=== PATIENT | female | born 1990 | race Caucasian/White ===

== ENCOUNTER 2017-11-05 07:28 | Emergency (ER) | payer BC ==
[2017-11-05 07:48] VITALS: BP 115/70
--- NOTE | 2017-11-05 08:00 | UC ---
Ear Complaint HPI - HPI Summary HPI Summary: The patient is a 27-year-old female with bilateral ear pain and decreased hearing 2 days. Her symptoms are worse when she is supine. She has had sinus pressure postnasal drip and nasal congestion times a week. She is approximately 29 weeks . She has had some relief with Tylenol and warm compresses. She has had no fever or chills. She denies any chest pain or shortness of breath. - History of Current Complaint Chief Complaint: UCEar Stated Complaint: EAR PAIN Time Seen by Provider: 11/05/17 07:47 Hx Obtained From: Patient Onset/Duration: Gradual Onset Severity Initially: Moderate Severity Currently: Mild Pain Intensity: 4 Pain Scale Used: 0-10 Numeric Aggravating Factors: Nothing Associated Signs/Symptoms: Positive: Hearing Loss, URI Symptoms - Allergies/Home Medications Allergies/Adverse Reactions: Allergies Allergy/AdvReac Type Severity Reaction Status Date / Time adhesive Allergy Blisters Verified 11/05/17 07:42 amoxicillin Allergy Rash Verified 11/05/17 07:42 sulfamethoxazole Allergy Facial Verified 11/05/17 07:42 [From Bactrim] Swelling and Hives trimethoprim [From Bactrim] Allergy Facial Verified 11/05/17 07:42 Swelling and Hives Home Medications: Home Medications Acetaminophen [Acetaminophen Extra Strength] 500 mg PO Q6H PRN 11/05/17 [ History Confirmed 11/05/17] Vitamin TAB* 1 tab PO DAILY 11/05/17 [History Confirmed 11/05/17] PMH/Surg Hx/FS Hx/Imm Hx Previously Healthy: Yes - Surgical History Surgical History: None - Family History Known Family History: Positive: Hypertension - Social History Alcohol Use: None Substance Use Type: None Smoking Status (MU): Never Smoked Tobacco Review of Systems Constitutional: Negative Skin: Negative Eyes: Negative ENT: Ear Ache, Nasal Discharge, Sinus Congestion Respiratory: Negative Cardiovascular: Negative Gastrointestinal: Negative Genitourinary: Negative Motor: Negative Neurovascular: Negative Musculoskeletal: Negative Neurological: Negative Psychological: Negative Is Patient Immunocompromised?: No All Other Systems Reviewed And Are Negative: Yes Physical Exam Triage Information Reviewed: Yes Appearance: Well-Appearing, No Pain Distress, Well-Nourished Vital Signs: Initial Vital Signs Temp 98.7 F 11/05/17 07:38 Pulse 100 11/05/17 07:38 Resp 16 11/05/17 07:38 BP 115/70 11/05/17 07:38 Pulse Ox 100 11/05/17 07:38 Vital Signs Reviewed: Yes Eyes: Positive: Conjunctiva Clear ENT: Positive: Pharynx normal, Pharyngeal erythema, Nasal congestion. Negative : Hearing grossly normal, Nasal drainage, TMs normal - both red with distorted lnadmarks, bullous lesion on left TM, Muffled voice, Sinus tenderness, Uvula midline Neck: Positive: Supple, Nontender, No Lymphadenopathy Respiratory: Positive: Lungs clear, Normal breath sounds, No respiratory distress, No accessory muscle use Cardiovascular: Positive: RRR, No Murmur Abdomen Description: Positive: Other: - gravid uterus Musculoskeletal: Positive: ROM Intact, No Edema Neurological: Positive: Alert, Muscle Tone Normal Psychological Exam: Normal Skin Exam: Normal Ear Complaint Course/Dx - Differential Dx/Diagnosis Provider Diagnoses: bilateral OM Discharge - Sign-Out/Discharge Documenting (check all that apply): Patient Departure - Discharge Plan Condition: Stable Disposition: HOME Prescriptions: Cefdinir [Cefdinir 300 MG CAP] 300 mg PO BID #14 capsule Patient Education Materials: Ear Infection (ED) Referrals: Jossie Torrez MD [Primary Care Provider] - 4 Days (if pain not better) Additional Instructions: tylenol recheck in 2-3 weeks if hearing not back to normal - Billing Disposition and Condition Condition: STABLE Disposition: Home
== END 2017-11-05 08:14 | disposition home or self-care (01) ==
LOC: UCCORT 07:28
DX: H66.93 Otitis media, unspecified, bilateral (principal); Z88.1 Allergy status to other antibiotic agents; Z88.0 Allergy status to penicillin
CPT/HCPCS: 99202; G0463